=== PATIENT | male | born 1980 ===

== ENCOUNTER 2024-12-01 13:44 | Emergency (ER) | payer OTHER ==
[2024-12-01] MEDS: Lidocaine 1% 5 ML VIAL INJECT ONE (14:19)
[2024-12-01] MEDS: Bacitracin Oint 1 GM U/D Packet TOP ONE (14:19)
== END 2024-12-01 14:48 | disposition home or self-care (01) ==
LOC: DL.ED 13:44
DX: S61.411A Laceration without foreign body of right hand, initial encounter (principal); W26.8XXA Contact with other sharp object(s), not elsewhere classified, initial encounter; Y93.89 Activity, other specified
CPT/HCPCS: 12002; 73130-RT; 99283; A9270-GY; J3490